=== PATIENT | male | born 1955 | race Two or more races ===

== ENCOUNTER 2019-04-21 17:26 | Inpatient (IN) | payer MEDICARE, OTHER ==
[~2019-04-21] VITALS: Ht 175.3 cm; Wt 75.3 kg
[2019-04-21] MEDS ORDERED: ASPI-1152 PO (18:10)
[2019-04-21] MEDS ORDERED: ATOR80TA PO (18:10)
[2019-04-21] MEDS ORDERED: LISI40TA4 PO (18:10)
[2019-04-21] MEDS ORDERED: METF-442 PO (18:10)
[2019-04-21] MEDS ORDERED: INSU100V3 IJ (18:10)
[2019-04-21] MEDS ORDERED: NIFE30TA89 PO (18:10)
[2019-04-21] MEDS ORDERED: HYDR25TA4 PO (18:10)
--- NOTE | 2019-04-21 18:10 | NUR ---
DATA REDUCTION TECHNICIAN NOTES-- UPON RECEIVING REPORT FROM NICOLE AT [facility]. PER NICOLE, BP HAS BEEN ELEVATED FROM 210/110, 188/89 WITH HR WITHIN RANGE. UPON ARRIVAL, BP 166/105, HR 82. . WILL CONTINUE TO MONITOR.
--- NOTE | 2019-04-21 18:10 | NUR ---
ENGINEERING OPERATORBARGAIN TABLE CLERK NOTE PT ARRIVED TO TELE UNIT IN STABLE CONDITION VIA GURNEY ACCOMPANIED BY EMT PERSONNEL FROM [facility]. PT IS A/OX4, AFEBRILE. RESPIRATIONS ARE EVEN AND UNLABORED, NOT IN ANY ACUTE DISTRESS NOTED. PT C/O OF SLIGHT PAIN 2/10 TO RIGHT EYE, NOTED WITH REDNESS. DENIES ANY CHEST PAIN, SOB, N/V. IV SITE TO RFA 20G INTACT, NO INFILTRATION NOTED. DRESSING KEPT CLEAN AND DRY. SCABS NOTED TO RLE. NO FURTHER SKIN ISSUES NOTED. PT IS AMBULATORY WITH CANE. FAMILY AT BEDSIDE. DR. PATRICK MADE AWARE OF ADMISSION, AWAITING ORDERS. INSTRUCTED PT TO USE CALL LIGHT WHEN ASSISTANCE IS NEEDED, CALL LIGHT IS LEFT WITHIN REACH. WILL MONITOR THROUGHOUT SHIFT FOR CONTINUITY OF CARE.
[2019-04-21] MEDS ORDERED: INSU100I26 (18:16)
[2019-04-21 18:36] VITALS: BP 166/105
[2019-04-21 20:00] VITALS: BP 121/59
--- NOTE | 2019-04-21 20:00 | NUR ---
CSR OPENING NOTES RECEIVED REPORT FROM OSVALDO NAVARRETE. PATIENT A/A/O X3, ABLE TO VERBALIZE NEEDS. BREATHING EVEN & UNLABORED, TOLERATING ROOM AIR. DENIES ANY SOB OR DIFFICULTY BREATHING. ON TELE W/ SINUS RHYTHM, HR 70S. DENIES ANY CHEST PAIN OR DISCOMFORT. RIGHT AC IV #20 INTACT & PATENT W/ DRESSING CDI, SALINE LOCKED. REDNESS NOTED IN RIGHT EYE W/ C/O PAIN, ESPECIALLY WHEN MOVING EYES. DENIES ANY HEADACHE OR DIZZINESS. ABLE TO AMBULATE W/ STEADY GAIT USING CANE. SAFETY MEASURES IN PLACE W/ SIDE RAILS UP & BED ALARM ON. CALL LIGHT PLACED WITHIN REACH & INSTRUCTED TO CALL FOR ASSISTANCE. STILL AWAITING ADMITTING ORDERS. WILL CONTINUE TO MONITOR.
--- NOTE | 2019-04-21 22:45 | NUR ---
HOUSEHOLD CHORES NOTES PATIENT DEMANDED TO LEAVE BECAUSE DOCTOR HASN'T COME TO SEE HIM SINCE HE GOT ADMITTED & FELT THAT STAFF WAS IGNORING HIM. EXPLAINED TO PATIENT THAT ON-CALL MD HAS BEEN CALLED AND STILL AWAITING ADMITTING ORDERS. OFFERED PATIENT SOME JUICE AND CRACKERS IN THE MEANTIME EVEN THOUGH NO DIET ORDER HAD BEEN GIVEN. PATIENT STILL DISSATISFIED AND CONTINUED TO ARGUE W/ STAFF ABOUT LEAVING. ALSO EXPLAINED TO PATIENT THAT HE HAS TO SIGN AN AMA PAPER IN ORDER FOR HIM TO LEAVE & IV ACCESS HAS TO BE REMOVED. PATIENT REFUSED TO SIGN PAPER & HAVE IV ACCESS REMOVED & CONTINUED TO ARGUE W/ STAFF. PATIENT WAS OUT IN THE HALLWAY BY THE ENTRANCE & SECURITY WAS CALLED SO PATIENT WOULD NOT BE ABLE TO LEAVE. DAUGHTER WAS ALSO CALLED AND PER DAUGHTER SHE WOULD COME PICK HIM UP. HOWEVER, DAUGHTER CALLED PATIENT'S PHONE AND HE TOLD HER NOT TO COME ANYMORE. RN SPOKE TO THE DAUGHTER & EXPLAINED THE SITUATION TO HER AND PER DAUGHTER, PATIENT CAN MAKE HIS OWN DECISIONS AND HE CAN LEAVE IF HE WANTS TO. MULTIPLE ATTEMPTS WERE MADE TO GET ADMITTING ORDERS FROM PRICILLA PATRICK BUT NO REPLY WAS RECEIVED. RN ALSO INFORMED DIANE CHRISTIAN OF NEEDING ADMITTING ORDERS BECAUSE PATIENT HAD BEEN ADMITTED SINCE 1729 & STILL NO ORDERS WERE IN THE SYSTEM. PER DIANE, PRICILLA SHOULD BE CALLED TO GET THE ADMITTING ORDERS. PRICILLA PATRICK WAS CALLED DIRECTLY THIS TIME BECAUSE OF THE CURRENT SITUATION & VOICEMAIL WAS LEFT. SPARK PLUG ASSEMBLER, LILI WAS ALSO INFORMED OF THE SITUATION AND CHARGE NURSE MANNY. RN WAS INSTRUCTED TO CALL DR MA BY CHARGE NURSE WHO WAS INSTRUCTED BY SPARK PLUG ASSEMBLER. RN CALLED & LEFT MESSAGE TO DR MA EXPLAINING THE SITUTATION. DIANE CHRISTIAN ONCE AGAIN INFORMED OF THE SITUATION & THAT THERE WERE STILL NO RETURN CALLS OR ADMITTING ORDERS FOR PATIENT.
[2019-04-21] MEDS ORDERED: ACETAMINOPHEN 325 MG TABLET PO PRN (23:00)
[2019-04-21] MEDS ORDERED: TEMAZEPAM 15 MG CAPSULE PO PRN (23:00)
[2019-04-21] MEDS ORDERED: HYDROCODONE/APAP 5/325MG 1 EACH TABLET PO PRN (23:00)
[2019-04-21] MEDS ORDERED: MAG HYDROX/AL HYDROX/SIMETH 30 ML UDC PO PRN (23:00)
[2019-04-21] MEDS ORDERED: MORPHINE SULFATE INJ 2 MG/ML DISP.SYRIN IV PRN (23:00)
[2019-04-21] MEDS ORDERED: MAGNESIUM HYDROXIDE 30 ML UDC PO PRN (23:00)
[2019-04-21] MEDS ORDERED: ONDANSETRON HCL/PF 4 MG/2 ML VIAL IVP PRN (23:00)
--- NOTE | 2019-04-21 23:00 | NUR ---
SR. UNIX SYSTEM ADMINISTRATOR NOTES DIANE CHRISTIAN SEEN & EXAMINED PATIENT. PATIENT CALMED DOWN & DECIDED TO STAY. PER DIANE, HE WILL INPUT THE ADMITTING ORDERS. CHARGE NURSE & MISSILE INSPECTOR PREFLIGHT AWARE.
[2019-04-21] MEDS ORDERED: *INSULIN REGULAR(HUMULIN R)HUM 100 UNIT/ML VIAL SQ PRN (23:30)
[2019-04-21] MEDS: BLOOD SUGAR DIAGNOSTIC 1 EACH STRIP VI SCH (23:30)
[2019-04-21] MEDS ORDERED: DEXTROSE 50%-WATER 50 ML DISP.SYRIN IV PRN (23:30)
[2019-04-21] MEDS ORDERED: hydrALAZINE HCL IV 20 MG VIAL IV PRN (23:30)
[2019-04-22] VITALS (7 sets, daily range): BP systolic 111–187; BP diastolic 59–98
--- NOTE | 2019-04-22 | NUR ---
BELLY DANCER NOTES PATIENT'S BS = 551. ADMINISTERED 10 UNITS PER SLIDING SCALE & INFORMED DIANE CHRISTIAN. PER DIANE, NO NEW ORDERS & JUST RECHECK @ 9230.
--- NOTE | 2019-04-22 04:15 | NUR ---
MANAGER SALT NOTES PATIENT'S BS = 361. INFORMED DIANE CHRISTIAN & NEW ORDERS GIVEN @ THIS TIME. WILL ENDORSE TO AM NURSE.
[2019-04-22 06:35] LABS: BASOPHILS # (AUTO) 0.1 /CMM (0.0-0.2); BASOPHILS % (AUTO) 0.7 % (0.0-2.0); EOSINOPHILS % (AUTO) 1.9 % (0.0-6.0); HEMATOCRIT 41 % (39-51); HEMOGLOBIN 13.7 g/dL (13.5-17.5); LYMPHOCYTES # (AUTO) 2.7 /CMM (0.8-4.8); LYMPHOCYTES % (AUTO) 26.2 % (20.0-44.0); MEAN CORPUSCULAR HGB CONC 34 g/dl (31.0-36.0); MEAN CORPUSCULAR VOLUME 90 fL (80-96); MONOCYTES % (AUTO) 10.2 % (2.0-12.0); NEUTROPHILS # (AUTO) 6.2 /CMM (1.8-8.9); PLATELET COUNT (AUTO) 195 /CMM (150-450); RED BLOOD CELL COUNT(AUTO) 4.52 MIL/uL (4.5-6.0); WHITE BLOOD COUNT (AUTO) 10.1 K/uL (4.3-11.0)
[2019-04-22 06:42] LABS: ALANINE AMINOTRANSFERASE 44 U/L (12-78); ALKALINE PHOSPHATASE 188 U/L (46-116); ASPARTATE AMINOTRANSFERASE 22 U/L (15-37); BILIRUBIN,DIRECT 0.1 mg/dL (0.0-0.2); BILIRUBIN,TOTAL 0.4 mg/dL (0.2-1.0); CALCIUM, SERUM 8.5 mg/dL (8.5-10.1); CARBON DIOXIDE 29 mmol/L (21-32); CHLORIDE 96 mmol/L (98-107); CREATININE 0.9 mg/dL (0.6-1.3); MAGNESIUM 1.8 mg/dL (1.8-2.4); PHOSPHORUS 3.3 mg/dL (2.5-4.9); POTASSIUM 3.7 mmol/L (3.5-5.1); SODIUM SERUM 133 mmol/L (136-145); UREA NITROGEN, BLOOD 22 mg/dL (7-18)
[2019-04-22 06:54] LABS: GLUCOSE 371 mg/dL (74-106)
--- NOTE | 2019-04-22 06:57 | NUR ---
SPANISH LITERATURE PROFESSOR NOTES CRITICAL LAB RESULT, GLUCOSE = 371. WILL ENDORSE TO AM NURSE.
[2019-04-22 07:08] LABS: CHOLESTEROL 140 mg/dL (<200); HDL CHOLESTEROL 48 mg/dL (40-60); LDL 83 mg/dL (0-99); TRIGLYCERIDES 95 mg/dL (30-150)
--- NOTE | 2019-04-22 07:25 | NUR ---
TAKER OFF DRYING KILN OPENING NOTES RECEIVED REPORT FROM [facility] NURSE. PATIENT AWAKE IN BED, ALERT AND ORIENTED X 3, ON ROOM AIR, TOLERATING WELL, DENIES ANY PAIN OR SOB, RESPIRATIONS ARE EVEN AND UNLABORED, NO SIGNS OF RESPIRATORY DISTRESS NOTED. RIGHT AC G20 SITE IS CLEAN, DRY, INTACT. BED IS IN LOW POSITION, LOCKED, CALL LIGHT PLACED WITHIN REACH. DISCUSSED PLAN OF CARE WITH PATIENT.
[2019-04-22] MEDS: BLOOD SUGAR DIAGNOSTIC 1 EACH STRIP VI SCH ×4 (08:12→21:10)
[2019-04-22] MEDS: ASPIRIN EC 81 MG TABLET.DR PO SCH (08:24)
[2019-04-22] MEDS: HYDROCHLOROTHIAZIDE 25 MG TABLET PO SCH (08:24)
[2019-04-22] MEDS: LISINOPRIL (20MG) 20 MG TABLET PO SCH (08:25)
[2019-04-22] MEDS: CIPROFLOXACIN HCL 0.3% 5 ML BOTTLE RIGHTEYE SCH ×4 (08:33→21:09)
[2019-04-22] MEDS: INSULIN REGULAR, HUMAN 100 UNIT/ML 3 ML VIAL SQ PRN ×3 (08:54→18:01)
[2019-04-22] MEDS ORDERED: NIFEdipine XL (30MG) 30 MG TAB PO SCH (09:00)
[2019-04-22] MEDS: CARVEDILOL 12.5 MG TABLET PO SCH ×2 (12:38→21:09)
[2019-04-22] MEDS: METFORMIN 500 MG TABLET PO SCH (17:02)
[2019-04-22] MEDS: GABAPENTIN 100 MG CAPSULE PO SCH (17:02)
--- NOTE | 2019-04-22 19:23 | NUR ---
PROCESS EXCELLENCE MANAGER CLOSING NOTE ENDORSED REPORT TO NOC SHIFT NURSE. PATIENT SLEEPING IN BED, ON ROOM AIR, SATURATING WELL, RESPIRATIONS EASY AND UNLABORED, NO SIGNS OF RESPIRATORY DISTRESS NOTED. BED IS IN LOW POSITION, LOCKED, CALL LIGHT WITHIN REACH. PATIENT ON TELE MONITOR, RIGHT AC G20 INTACT, PATENT. ALL DUE MEDS GIVEN.
--- NOTE | 2019-04-22 19:41 | NUR ---
TRADEMARK ATTORNEY OPENING NOTES . PATIENT SLEEPING IN BED, ON ROOM AIR, SATURATING WELL, RESPIRATIONS EVEN WITH NO ACUTE DISTRESS NOTED. , BED IS IN LOW POSITION, LOCKED, CALL LIGHT WITHIN REACH. PATIENT ON TELE MONITOR NS RYTHM RIGHT AC G20 INTACT, PATENT. WILL CONTINUE TO MONITER AND CARRY OUT PLAN OF CARE..
[2019-04-22] MEDS ORDERED: ATORVASTATIN 40 MG TABLET PO SCH (22:00)
[2019-04-23] VITALS: BP_SYST 130; BP_SYST 134; BP_DIAS 71; BP_DIAS 82
[2019-04-23] MEDS: CIPROFLOXACIN HCL 0.3% 5 ML BOTTLE RIGHTEYE SCH ×3 (01:24→09:10)
[2019-04-23 04:00] VITALS: BP 139/81
[2019-04-23 05:13] VITALS: BP 125/77
--- NOTE | 2019-04-23 05:19 | NUR ---
PT DID NOT WANT TO BE WOKEN UP FOR EYEDROPS CIPRO ANTIBIOTICS FOR CONJUNCTIVITIS IN THE RIGHT EYE SCHEDULED AT 0500 REQUESTED FOR THEM TO BE ADMINISTERED AT 8 AM WHEN HE IS AWAKE.
[2019-04-23 06:35] LABS: BASOPHILS # (AUTO) 0.1 /CMM (0.0-0.2); BASOPHILS % (AUTO) 0.6 % (0.0-2.0); EOSINOPHILS % (AUTO) 1.5 % (0.0-6.0); HEMATOCRIT 41 % (39-51); HEMOGLOBIN 13.8 g/dL (13.5-17.5); LYMPHOCYTES # (AUTO) 2.6 /CMM (0.8-4.8); LYMPHOCYTES % (AUTO) 27.7 % (20.0-44.0); MEAN CORPUSCULAR HGB CONC 34 g/dl (31.0-36.0); MEAN CORPUSCULAR VOLUME 90 fL (80-96); MONOCYTES # (AUTO) 0.9 /CMM (0.1-1.30); MONOCYTES % (AUTO) 9.6 % (2.0-12.0); NEUTROPHILS # (AUTO) 5.8 /CMM (1.8-8.9); NEUTROPHILS % (AUTO) 60.6 % (43.0-81.0); PLATELET COUNT (AUTO) 210 /CMM (150-450); RED BLOOD CELL COUNT(AUTO) 4.56 MIL/uL (4.5-6.0); WHITE BLOOD COUNT (AUTO) 9.5 K/uL (4.3-11.0)
[2019-04-23 06:41] LABS: ALANINE AMINOTRANSFERASE 38 U/L (12-78); ALBUMIN 2.8 g/dL (3.4-5.0); ALKALINE PHOSPHATASE 149 U/L (46-116); ASPARTATE AMINOTRANSFERASE 21 U/L (15-37); BILIRUBIN,TOTAL 0.4 mg/dL (0.2-1.0); CARBON DIOXIDE 28 mmol/L (21-32); CHLORIDE 98 mmol/L (98-107); CREATININE 0.9 mg/dL (0.6-1.3); GLUCOSE 268 mg/dL (74-106); MAGNESIUM 1.9 mg/dL (1.8-2.4); PHOSPHORUS 4.6 mg/dL (2.5-4.9); POTASSIUM 3.4 mmol/L (3.5-5.1); SODIUM SERUM 135 mmol/L (136-145); TOTAL PROTEIN, SERUM 6.7 g/dL (6.4-8.2); UREA NITROGEN, BLOOD 26 mg/dL (7-18)
--- NOTE | 2019-04-23 06:54 | NUR ---
MILK ROUTE DELIVERER CLOSING NOTES . PATIENT SLEEPING IN BED, ON ROOM AIR, SATURATING WELL, NO CHANGES OVER NIGHT. PT IN NO ACUTE DISTRESS. EYEDROPS TO BE GIVEN AT 8 AM UPON PT REQUEST. BLOOD SUGAR AT 2200 WAS 371 10 UNITS GIVEN. BED IS IN LOW POSITION, LOCKED, CALL LIGHT WITHIN REACH. PATIENT ON TELE MONITOR, RIGHT AC G20 INTACT, PATENT. ALL DUE MEDS GIVEN AND ALL NEEDS MET. WILL ENDORSE TO AM SHIFT TO CARRY OUT PLAN OF CARE.
--- NOTE | 2019-04-23 07:15 | NUR ---
RN OPENING NOTES PT IS ASLEEP IN BED. RECEIVED REPORT FROM ADMITTED ATTORNEYS RN. PT HAS EQUAL CHEST RISE AND FALL. NO SOB OR PAIN NOTED AT THIS TIME. PT IS SR 70'S ON TELE MONITOR. BED IS LOCKED AND IN LOWEST POSITION WITH CALL LIGHT IN REACH.
[2019-04-23 08:00] VITALS: BP 149/84
[2019-04-23] MEDS: BLOOD SUGAR DIAGNOSTIC 1 EACH STRIP VI SCH (08:37)
[2019-04-23] MEDS ORDERED: NIFEdipine XL (30MG) 30 MG TAB PO SCH (09:00)
[2019-04-23] MEDS: GABAPENTIN 100 MG CAPSULE PO SCH (09:07)
[2019-04-23] MEDS: POTASSIUM CHLORIDE 20 MEQ TAB.PRT.SR PO SCH ×2 (09:07→10:00)
[2019-04-23] MEDS: ASPIRIN EC 81 MG TABLET.DR PO SCH (09:07)
[2019-04-23] MEDS: HYDROCHLOROTHIAZIDE 25 MG TABLET PO SCH (09:09)
[2019-04-23] MEDS: METFORMIN 500 MG TABLET PO SCH (09:09)
[2019-04-23 09:10] VITALS: BP 149/84
[2019-04-23] MEDS: CARVEDILOL 12.5 MG TABLET PO SCH (09:10)
[2019-04-23] MEDS: LISINOPRIL (20MG) 20 MG TABLET PO SCH (09:10)
[2019-04-23] MEDS: INSULIN REGULAR, HUMAN 100 UNIT/ML 3 ML VIAL SQ PRN (09:12)
--- NOTE | 2019-04-23 11:08 | NUR ---
PT REFUSED SECOND POTASSIUM TABLET STATES HE ALREADY HAD ONE AND WANTS TO REST.
[2019-04-23] MEDS ORDERED: LISI20TA61 PO (11:13)
[2019-04-23] MEDS ORDERED: CARV12.52 PO (11:13)
[2019-04-23] MEDS ORDERED: CIPR5DRO18 RIGHTEYE (11:13)
[2019-04-23] MEDS ORDERED: NIFE30TA89 PO (11:13)
[2019-04-23] MEDS ORDERED: HYDR25TA4 PO (11:13)
[2019-04-23] MEDS ORDERED: METF-440 PO (11:13)
[2019-04-23] MEDS ORDERED: GABA100C PO (11:13)
[2019-04-23] MEDS ORDERED: INSU100V7 SQ ×2 (12:49)
--- NOTE | 2019-04-23 13:31 | NUR ---
HALIE CHRISTY AWARE PATIENT BLOOD SUGAR ON 300,PER HALIE PATIENT NONCOMPLIANT,ASYMPTOMATIC AND CLEAR FOR DISCHARGE,PRESCRIPTION GIVEN ORDERED,PATIENT INSISTING THAT HE WILL NOT TAKE IT BECAUSE IT DOESNT WORK,EXPLAINED IMPORATANCE OF TAKING MEDS ROUTINELY TO OBTAIN THE BENEFIT EFFECT,DIET INSTRUCTION GIVEN,PER PATIENT HE CHECKS HIS BLOOD SUGAR ALSO,FAMILY AT BEDSIDE EXPLAINED IMPORTANCE OF THE MEDS AND OBSERVING NO CONCENTRATED SWEETS .
--- NOTE | 2019-04-23 13:37 | NUR ---
RN D/C NOTES PT BECAME VERY AGITATED AND REFUSED TO SIGN ANY PAPERWORK. FAMILY AT BEDSIDE REQUESTED TO SPEAK WITH HOSPITALIST. WHEN HOSPITALIST WAS ON THE PHONE PT BECAME VERY AGITATED AND HUNG UP ON THE HOSPITALIST. PT KEPT SAYING HE WANTS A GUARANTEE THAT IT IS OKAY TO LEAVE WITH BLOOD SUGAR LEVEL OVER 300. PT IS NOT COMPLIANT WITH MEDICATIONS. PT STATED HE NO LONGER WANTED TO SPEAK WITH ME. CHARGE NURSE ALBERT SPOKE WITH PT AND PT LEFT ON HIS OWN ACCORD WITH FAMILY AFTER SPEAKING WITH CHARGE NURSE ALBERT.
[2019-04-24 11:07] LABS: *SPE ALBUMIN 3.1 g/dL (2.9-4.4); *SPE ALPHA-1-GLOBULIN 0.2 g/dL (0.0-0.4); *SPE ALPHA-2-GLOBULIN 0.7 g/dL (0.4-1.0); *SPE BETA GLOBULIN 1.3 g/dL (0.7-1.3); *SPE M-SPIKE Not Observed g/dL (Not Observed); *SPEGAMMA GLOBULIN 0.8 g/dL (0.4-1.8)
== END 2019-04-23 13:25 | disposition home or self-care (01) | DRG 304 ==
LOC: TELE1 17:26 → MEDSG1 04-23 09:25
PROVIDERS: ADMIT Nurse Practitioner Acute Care; ATTEND Nurse Practitioner Acute Care
DX: I16.0 Hypertensive urgency (principal); N17.0 Acute kidney failure with tubular necrosis; E87.1 Hypo-osmolality and hyponatremia; E11.65 Type 2 diabetes mellitus with hyperglycemia; I10 Essential (primary) hypertension; E78.5 Hyperlipidemia, unspecified; H10.9 Unspecified conjunctivitis; Z91.14 Patient's other noncompliance with medication regimen
CPT/HCPCS: 36415; 80048-TC; 80053-TC; 80061-TC; 80076-TC; 82962-TC; 83735-TC; 84100-TC; 84155; 84165; 84484-TC; 85025-TC; 87081-TC; 93307-TC; G0378; J0360; J1815